=== PATIENT | male | born 1990 | race Caucasian/White ===

== ENCOUNTER 2018-04-04 11:04 | Emergency (ER) | payer OTHER ==
[~2018-04-04] VITALS: Ht 185.4 cm; Wt 142.1 kg
[2018-04-04 11:07] VITALS: BP 153/68; PULSE 61; RESP 16; TEMP 97.4; O2SAT 98
--- NOTE | 2018-04-04 11:25 | PD ---
HPI . Needlestick Chief Complaint: Exposure to Blood/Body Fluids Time Seen by Provider: 11:12 Travel History International Travel<30 days: No Contact w/Intl Traveler<30days: No Traveled to known affect area: No History of Present Illness HPI Patient presents for the evaluation of a needlestick. He was cleaning the bed of a patient who had recently been discharged from the emergency department when he was inadvertently stuck by the needle used to anesthetize the patient's wound. Nothing is known about the patient's HIV or hepatitis status. This patient's wound is very minor. PFSH Past Medical History Medical History: Denies Significant Hx Tetanus Vaccination: Unknown Influenza Vaccination: Yes Past Surgical History Surgical History: No Previous Surgery Social History Alcohol Use: No Tobacco Use: No Substance Use: No Allergies-Medications (Allergen,Severity, Reaction): Coded Allergies: No Known Allergies (Verified Allergy, Unknown, 04/04/18) Review of Systems Except as stated in HPI: all other systems reviewed are Neg Physical Exam Narrative GENERAL: Awake and alert and in no acute distress. SKIN: Warm and dry. Normal color and turgor. Tiny wound on the left middle finger. HEAD: Normocephalic/atraumatic. EYES: Pupils are equal. Extraocular movements are intact. NECK: Normal range of motion. Supple. CARDIOVASCULAR: Regular rate and rhythm. RESPIRATORY: Nonlabored respirations. Normal sats. MUSCULOSKELETAL: Atraumatic. Normal muscle tone. NEUROLOGICAL: A and O 3. Nonfocal. PSYCHIATRIC: Appropriate mood and affect. Data Data Last Documented VS Vital Signs Date Time Temp Pulse Resp B/P (MAP) Pulse Ox O2 Delivery O2 Flow Rate FiO2 04/04/18 11:07 97.4 61 16 153/68 (96) 98 MDM Medical Decision Making Medical Screen Exam Complete: Yes Emergency Medical Condition: Yes Differential Diagnosis Differential diagnosis includes needlestick by clean needle, needle stick by a dirty needle from a non-HIV or hepatitis infected patient, needle stick by a dirty needle from an HIV or hepatitis infected patient. Narrative Course This patient presents for the evaluation and treatment of a needlestick sustained on the needle used to anesthetize the wound. HIV and hepatitis status of the source patient are unknown. I have advised against the initiation of PEP. This is a low risk wound. Diagnosis Primary Impression: Needlestick injury accident Referrals: [employer] Patient Instructions: General Instructions, Needle Stick Injuries (ED) Disposition: 01 DISCHARGE HOME Condition: Stable Anamaria Barajas MD Apr 04, 2018 11:25
== END 2018-04-04 11:57 | disposition home or self-care (01) ==
LOC: PHEFT 11:04
DX: S61.233A Puncture wound without foreign body of left middle finger without damage to nail, initial encounter (principal); W46.1XXA Contact with contaminated hypodermic needle, initial encounter; Y93.F9 Activity, other caregiving; Y92.239 Unspecified place in hospital as the place of occurrence of the external cause; Y99.0 Civilian activity done for income or pay; Z77.21 Contact with and (suspected) exposure to potentially hazardous body fluids
CPT/HCPCS: 99282